=== PATIENT | female | born 2000 | race Hispanic/Latino ===

== ENCOUNTER 2023-01-20 06:10 | Emergency (ER) | payer OTHER ==
[~2023-01-20] VITALS: Ht 162.6 cm; Wt 66.0 kg
[2023-01-20 10:02] VITALS: BP 114/72; TEMP 96.4; O2SAT 100
== END 2023-01-20 10:35 | disposition home or self-care (01) ==
LOC: M ED 06:10
DX: M25.561 Pain in right knee (principal); M79.661 Pain in right lower leg

== ENCOUNTER 2023-03-09 14:24 | Emergency (ER) | payer OTHER ==
[~2023-03-09] VITALS: Ht 162.6 cm; Wt 66.7 kg
[2023-03-09 16:00] LABS: BASO # 0.1 10^3/uL (0.0-0.2); BASO % 0.7 % (0.0-1.0); EOS # 0.2 10^3/uL (0.0-0.5); EOS % 3.6 % (0.0-3.0); HEMATOCRIT 36.6 % (36.0-47.0); HEMOGLOBIN 11.6 g/dl (12.0-15.5); LYMPH # 2.5 10^3/uL (1.5-5.0); LYMPH % 37.6 % (24.0-44.0); MEAN CORPUSCULAR HEMOGLOBIN 28.3 pg (27.0-33.0); MEAN CORPUSCULAR HGB CONC 31.7 g/dl (32.0-36.5); MEAN CORPUSCULAR VOLUME 89.3 fl (80.0-96.0); MONO # 0.4 10^3/uL (0.0-0.8); MONO % 6.1 % (2.0-8.0); NEUTROPHILS # 3.5 10^3/uL (1.5-8.5); NEUTROPHILS % 51.7 % (36.0-66.0); PLATELET COUNT, AUTOMATED 296 10^3/uL (150-450); WHITE BLOOD COUNT 6.7 10^3/uL (4.0-10.0)
[2023-03-09 16:26] LABS: LIPASE 38 U/L (12-53)
[2023-03-09 16:28] LABS: HCG, SERUM QUALITATIVE NEGATIVE (NEGATIVE)
[2023-03-09 16:29] LABS: ALBUMIN 3.7 G/DL (3.2-5.2); ALKALINE PHOSPHATASE 55 U/L (46-116); ALT/SGPT 27 U/L (7.0-40); AST/SGOT 11 U/L (<34); BILIRUBIN,DIRECT < 0.1 MG/DL (<0.4); BILIRUBIN,TOTAL 0.2 MG/DL (0.3-1.2)
[2023-03-09 23:52] LABS: BLOOD UREA NITROGEN 14 MG/DL (9-23); CALCIUM LEVEL 8.9 MG/DL (8.5-10.1); CARBON DIOXIDE LEVEL 26 MMOL/L (20-31); CHLORIDE LEVEL 107 MMOL/L (98-107); CREATININE FOR GFR 0.73 MG/DL (0.55-1.30); GLOMERULAR FILTRATION RATE > 60.0 (>60); GLUCOSE, FASTING 89 MG/DL (60-100); POTASSIUM SERUM 3.6 MMOL/L (3.5-5.1); SODIUM LEVEL 141 MMOL/L (136-145)
[2023-03-10] MEDS ORDERED: ONDA4TAB6 PO (00:30)
[2023-03-10] MEDS ORDERED: ONDANSETRON 4MG ORAL DISINTEGRATING TAB PO ONE (00:30)
[2023-03-10 00:45] VITALS: BP 139/75; TEMP 98.8; O2SAT 100
== END 2023-03-10 00:50 | disposition home or self-care (01) ==
LOC: M ED 14:24
DX: K52.9 Noninfective gastroenteritis and colitis, unspecified (principal); Z79.83 Long term (current) use of bisphosphonates

== ENCOUNTER 2023-04-09 22:13 | Emergency (ER) | payer OTHER ==
[~2023-04-09] VITALS: Ht 162.6 cm; Wt 63.2 kg
[~2023-04-09 22:13] MED LIST: ONDA4TAB6 PO
[2023-04-09 23:19] LABS: RSV AMPLIFICATION NEGATIVE (NEGATIVE)
[2023-04-10] MEDS ORDERED: ONDA-83 PO (00:09)
[2023-04-10 00:23] VITALS: BP 112/63; TEMP 99.2; O2SAT 97
== END 2023-04-10 00:30 | disposition home or self-care (01) ==
LOC: M ED 22:13
DX: U07.1 COVID-19 (principal)

== ENCOUNTER 2023-05-26 09:28 | Inpatient (IN) | payer OTHER ==
[~2023-05-26] VITALS: Ht 162.6 cm; Wt 59.1 kg
[~2023-05-26 09:28] MED LIST changes: +ONDA-83 PO
[2023-05-26 10:19] LABS: HEMATOCRIT 39.7 % (36.0-47.0); HEMOGLOBIN 12.9 g/dl (12.0-15.5); MEAN CORPUSCULAR HEMOGLOBIN 28.2 pg (27.0-33.0); MEAN CORPUSCULAR HGB CONC 32.5 g/dl (32.0-36.5); MEAN CORPUSCULAR VOLUME 86.9 fl (80.0-96.0); PLATELET COUNT, AUTOMATED 415 10^3/uL (150-450); RED BLOOD COUNT 4.57 10^6/uL (4.00-5.40); WHITE BLOOD COUNT 7.2 10^3/uL (4.0-10.0)
[2023-05-26 10:44] LABS: ETHYL ALCOHOL (ETHANOL) < 0.003 % (0.000-0.010)
[2023-05-26 10:45] LABS: ALBUMIN 4.5 G/DL (3.2-5.2); ALKALINE PHOSPHATASE 61 U/L (46-116); ALT/SGPT 22 U/L (7.0-40); AST/SGOT 13 U/L (<34); BILIRUBIN,DIRECT 0.2 MG/DL (<0.4); BILIRUBIN,TOTAL 0.7 MG/DL (0.3-1.2); BLOOD UREA NITROGEN 13 MG/DL (9-23); CARBON DIOXIDE LEVEL 26 MMOL/L (20-31); CHLORIDE LEVEL 104 MMOL/L (98-107); CREATININE FOR GFR 0.68 MG/DL (0.55-1.30); GLOMERULAR FILTRATION RATE > 60.0 (>60); GLUCOSE, FASTING 87 MG/DL (60-100); POTASSIUM SERUM 4.2 MMOL/L (3.5-5.1); SALICYLATE LEVEL < 3.0 MG/DL (<30); SODIUM LEVEL 140 MMOL/L (136-145); TOTAL PROTEIN 8.1 G/DL (5.7-8.2)
[2023-05-26 10:46] LABS: THYROID STIMULATING HORMONE 0.982 uIU/ML (0.55-4.78)
[2023-05-26] MEDS ORDERED: ACET325C5 PO (11:37)
[2023-05-26] MEDS ORDERED: UNIS25TA3 PO (11:37)
[2023-05-26] MEDS ORDERED: IBUP-1022 PO (11:37)
[2023-05-26] MEDS ORDERED: HOME MED LIST COMPLETE! XX SCH (11:40)
[2023-05-26 11:53] LABS: HCG, SERUM QUALITATIVE NEGATIVE (NEGATIVE)
[2023-05-26 13:15] LABS: AMPHETAMINES LEVEL URINE NEGATIVE (NEGATIVE); BARBITURATES URINE NEGATIVE (NEGATIVE); BENZODIAZEPINES URINE NEGATIVE (NEGATIVE); CANNABINOIDS URINE NEGATIVE (NEGATIVE); COCAINE METABOLITE URINE NEGATIVE (NEGATIVE); METHADONE URINE NEGATIVE (NEGATIVE); OPIATES URINE NEGATIVE (NEGATIVE); PHENCYCLIDINE URINE NEGATIVE (NEGATIVE)
[2023-05-26] MEDS ORDERED: MAALOX 30 ML SUSP *UDC PO PRN (13:30)
[2023-05-26] MEDS ORDERED: ACETAMINOPHEN TAB 650MG DOSE (2X325MG) PO PRN (13:30)
[2023-05-26] MEDS ORDERED: MOM 30ML SUSPENSION UDC PO PRN (13:30)
[2023-05-26] MEDS: traZODone 50 MG TAB PO PRN (20:12)
[2023-05-26] MEDS: diphenhydrAMINE 25MG CAP PO PRN (20:52)
[2023-05-27 06:54] VITALS: BP 144/75; TEMP 98.1; O2SAT 100
[2023-05-27] MEDS: LIDOCAINE 5% (LIDODERM) PATCH TD SCH (12:29)
[2023-05-27 16:37] VITALS: BP 132/74; TEMP 97.9; O2SAT 99
[2023-05-27] MEDS: MIRTAZAPINE 15 MG TAB PO SCH (20:13)
[2023-05-28 06:20] VITALS: BP 101/66; TEMP 98.1; O2SAT 100
[2023-05-28 16:02] VITALS: BP 129/68; TEMP 98.4; O2SAT 98
[2023-05-28] MEDS: ONDANSETRON 4MG ORAL DISINTEGRATING TAB SL PRN (16:14)
[2023-05-28] MEDS: IBUPROFEN 400MG TAB PO PRN (20:17)
[2023-05-29 06:42] VITALS: BP 96/63; TEMP 97.3; O2SAT 96
[2023-05-29 16:12] VITALS: BP 111/79; TEMP 98.1; O2SAT 98
[2023-05-29] MEDS: MIRALAX *UNIT DOSE* 17GM PACKET PO PRN (19:35)
[2023-05-30 06:55] VITALS: BP 119/56; TEMP 97.7; O2SAT 99
[2023-05-30] MEDS: traZODone 25MG PER 1/2 TABLET PO PRN (20:07)
[2023-05-31 06:15] VITALS: BP 101/64; TEMP 98.5; O2SAT 100
[2023-05-31] MEDS ORDERED: LIDO5TD TD (10:33)
[2023-05-31] MEDS ORDERED: MIRT-10 PO (10:33)
[2023-05-31] MEDS ORDERED: MIRA33506 PO (10:33)
== END 2023-05-31 13:37 | disposition home or self-care (01) | DRG 881 ==
LOC: M ED 09:28 → M ED INP 13:30 → M PSY 17:05
PROVIDERS: ADMIT Student in an Organized Health Care Education/Training Program; ATTEND Student in an Organized Health Care Education/Training Program
DX: F32.A Depression, unspecified (principal); R45.851 Suicidal ideations; F17.290 Nicotine dependence, other tobacco product, uncomplicated; K59.00 Constipation, unspecified; G47.00 Insomnia, unspecified; M25.561 Pain in right knee; R11.0 Nausea; Z79.899 Other long term (current) drug therapy; Z11.52 Encounter for screening for COVID-19; Z62.811 Personal history of psychological abuse in childhood

== ENCOUNTER 2023-09-04 05:46 | Emergency (ER) | payer OTHER ==
[~2023-09-04] VITALS: Ht 165.1 cm; Wt 64.6 kg
[~2023-09-04 05:46] MED LIST changes: +ACET325C5 PO; +IBUP-1022 PO; +LIDO5TD TD; +MIRA33506 PO; +MIRT-10 PO; +ONDA-282 PO; -ONDA4TAB6 PO; +UNIS25TA3 PO
[2023-09-04 05:49] VITALS: BP 125/92; TEMP 98.2; O2SAT 100
[2023-09-04 06:43] LABS: HEMATOCRIT 35.8 % (36.0-47.0); HEMOGLOBIN 11.5 g/dl (12.0-15.5); MEAN CORPUSCULAR HEMOGLOBIN 28.2 pg (27.0-33.0); MEAN CORPUSCULAR HGB CONC 32.1 g/dl (32.0-36.5); MEAN CORPUSCULAR VOLUME 87.7 fl (80.0-96.0); PLATELET COUNT, AUTOMATED 329 10^3/uL (150-450); RED BLOOD COUNT 4.08 10^6/uL (4.00-5.40); WHITE BLOOD COUNT 6.7 10^3/uL (4.0-10.0)
[2023-09-04 07:05] LABS: AMPHETAMINES LEVEL URINE NEGATIVE (NEGATIVE); BARBITURATES URINE NEGATIVE (NEGATIVE); BENZODIAZEPINES URINE NEGATIVE (NEGATIVE); CANNABINOIDS URINE NEGATIVE (NEGATIVE); COCAINE METABOLITE URINE NEGATIVE (NEGATIVE); METHADONE URINE NEGATIVE (NEGATIVE); OPIATES URINE NEGATIVE (NEGATIVE); PHENCYCLIDINE URINE NEGATIVE (NEGATIVE)
[2023-09-04 07:07] LABS: ETHYL ALCOHOL (ETHANOL) < 0.003 % (0.000-0.010)
[2023-09-04 07:09] LABS: ALKALINE PHOSPHATASE 52 U/L (46-116); ALT/SGPT 18 U/L (7.0-40); AST/SGOT 10 U/L (<34); BILIRUBIN,DIRECT < 0.1 MG/DL (<0.4); BILIRUBIN,TOTAL 0.3 MG/DL (0.3-1.2); BLOOD UREA NITROGEN 16 MG/DL (9-23); CALCIUM LEVEL 9.2 MG/DL (8.5-10.1); CARBON DIOXIDE LEVEL 28 MMOL/L (20-31); CHLORIDE LEVEL 106 MMOL/L (98-107); CREATININE FOR GFR 0.82 MG/DL (0.55-1.30); GLOMERULAR FILTRATION RATE > 60.0 (>60); GLUCOSE, FASTING 82 MG/DL (60-100); POTASSIUM SERUM 4.9 MMOL/L (3.5-5.1); SALICYLATE LEVEL < 3.0 MG/DL (<30); SODIUM LEVEL 138 MMOL/L (136-145)
[2023-09-04 07:17] LABS: HCG, SERUM QUALITATIVE NEGATIVE (NEGATIVE)
== END 2023-09-04 07:59 | disposition home or self-care (01) ==
LOC: M ED 05:46
DX: F43.0 Acute stress reaction (principal); F32.A Depression, unspecified; Z91.09 Other allergy status, other than to drugs and biological substances; Z79.1 Long term (current) use of non-steroidal anti-inflammatories (NSAID); Z79.899 Other long term (current) drug therapy

== ENCOUNTER 2023-10-21 13:04 | Emergency (ER) | payer OTHER ==
[~2023-10-21] VITALS: Ht 162.6 cm; Wt 59.1 kg
[2023-10-21] MEDS: MORPHINE 2 MG/ML 1ML VIAL IV ONE (13:49)
[2023-10-21 16:05] VITALS: BP 119/85; TEMP 97.8; O2SAT 100
== END 2023-10-21 16:23 | disposition home or self-care (01) ==
LOC: M ED 13:04
DX: R07.9 Chest pain, unspecified (principal); M25.561 Pain in right knee; S16.1XXA Strain of muscle, fascia and tendon at neck level, initial encounter; Y92.410 Unspecified street and highway as the place of occurrence of the external cause; Y93.9 Activity, unspecified; Y99.9 Unspecified external cause status; V49.40XA Driver injured in collision with unspecified motor vehicles in traffic accident, initial encounter; F41.9 Anxiety disorder, unspecified; F32.A Depression, unspecified; Z91.09 Other allergy status, other than to drugs and biological substances; Z79.1 Long term (current) use of non-steroidal anti-inflammatories (NSAID); Z79.899 Other long term (current) drug therapy

== ENCOUNTER → 2024-03-29 | Outpatient (REF) | LOC: M PLAIMG 14:17 | PROVIDERS: ATTEND Internal Medicine | DX: M79.604 Pain in right leg (principal); M79.605 Pain in left leg ==